=== PATIENT | female | born 2000 | race Caucasian/White ===

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

== ENCOUNTER 2022-04-13 11:40 | Inpatient (IN) | payer OTHER ==
[2022-04-13 12:49] LABS: #Eosinphils 0.1 thou/uL (0.0-0.7); #Lymphocytes 0.9 thou/uL (1.20-3.40); #Monocytes 0.3 thou/uL (0.11-0.59); #Neutrophils 6.7 thou/uL (1.40-6.50); %Basophils 0.3 % (0.0-1.0); %Eosinophils 0.7 % (0.0-10.0); %Lymphocytes 11.7 % (21.0-51.0); %Monocytes 4.2 % (0.0-10.0); %Neutrophils 83.1 % (42.0-75.0); Hemoglobin 12.2 g/dL (12.0-16.0); Mean Corpuscular HGB CONC 32.5 g/dL (32.0-36.0); Mean Corpuscular Hemoglobin 29.6 pg (27.0-31.0); Mean Platelet Volume 8.3 fL (7.4-10.4); Platelet Count 275 10x3/uL (130-400); White Blood Cell (WBC) Count 8.1 10x3/uL (4.8-10.8)
[2022-04-13 13:21] LABS: ALT (SGPT) 410 U/L (8-55); AST (SGOT) 439 U/L (5-34); Albumin 3.9 g/dL (3.5-5.0); Alkaline Phosphatase 97 U/L (40-110); Anion Gap 14 mmol/L (10-20); BUN (Urea Nitrogen) 7 mg/dL (7.0-18.7); Bilirubin, Total 1.3 mg/dL (0.2-1.2); Calc. Creatinine Clearance 0 mL/min (70-130); Calcium 9.5 mg/dL (7.8-10.44); Carbon Dioxide 22 mmol/L (22-29); Chloride 105 mmol/L (98-107); Estimated GFR 126; Globulin 3.5 g/dL (2.4-3.5); Glucose 105 mg/dL (70-105); Lipase 131 U/L (8-78); Potassium 3.8 mmol/L (3.5-5.1); Protein, Total 7.4 g/dL (6.0-8.3); Sodium 137 mmol/L (136-145)
[2022-04-13] MEDS ORDERED: Acetaminophen 500 MG TAB ONE (14:18)
[2022-04-13 15:34] LABS: Bacteria/HPF None Seen HPF (None Seen); Bilirubin Negative (Negative); Blood, Urine Negative (Negative); Glucose, Urine (Dipstick) Normal (Negative); Ketone, Urine Negative (Negative); Leukocyte 75 Leu/uL (Negative); Nitrite Negative (Negative); Protein, Urine (Dipstick) Negative (Neg-Trace); RBC/HPF 0-3 HPF (0-3); Squamous Epithelial 0-3 HPF (0-3); Urobilinogen Normal mg/dL (Less than 2); WBC/HPF 0-3 HPF (0-3)
[2022-04-13 15:36] LABS: Clarity Cloudy (Clear)
[2022-04-13] MEDS ORDERED: Ondansetron ODT 4 MG TAB PO PRN (16:52)
[2022-04-13] MEDS ORDERED: Ondansetron PF 4 MG/2 ML Vial IVP PRN (16:52)
[2022-04-13] MEDS ORDERED: Piperacillin/Tazobactam 3.375 GM in Sodium Chloride 0.9% 100 ML IVPB SCH (17:00)
[2022-04-13] MEDS ORDERED: Morphine 4 MG/ML VIAL SLOW IVP PRN (17:23)
[2022-04-13 17:43] VITALS: BMI 28.3
[2022-04-13] MEDS ORDERED: Morphine 4 MG/ML VIAL ONE (17:56)
[2022-04-13 18:04] LABS: SARS-CoV-2 NAA Rapid Test Not Detected (NotDetected)
[2022-04-13] MEDS: Morphine 4 MG/ML VIAL SLOW IVP PRN (18:07)
[2022-04-13] MEDS ORDERED: Piperacillin/Tazobactam 3.375 GM VIAL ONE (19:11)
[2022-04-13] MEDS: Lactated Ringer's 1,000 ML IV SCH (20:14)
[2022-04-13] MEDS: Piperacillin/Tazobactam 3.375 GM in Sodium Chloride 0.9% 100 ML IVPB SCH (20:15)
[2022-04-13] MEDS: Famotidine 20 MG TAB PO SCH (20:17)
[2022-04-14] MEDS: Morphine 4 MG/ML VIAL SLOW IVP PRN ×3 (04:15→20:05)
[2022-04-14] MEDS: Piperacillin/Tazobactam 3.375 GM in Sodium Chloride 0.9% 100 ML IVPB SCH ×3 (04:16→20:06)
[2022-04-14] MEDS: Lactated Ringer's 1,000 ML IV SCH ×3 (04:16→16:11)
[2022-04-14 07:34] LABS: #Eosinphils 0.2 thou/uL (0.0-0.7); #Lymphocytes 1.7 thou/uL (1.20-3.40); #Monocytes 0.3 thou/uL (0.11-0.59); %Basophils 0.5 % (0.0-1.0); %Eosinophils 2.3 % (0.0-10.0); %Lymphocytes 20.7 % (21.0-51.0); %Monocytes 3.7 % (0.0-10.0); %Neutrophils 72.9 % (42.0-75.0); Hemoglobin 10.8 g/dL (12.0-16.0); Mean Corpuscular HGB CONC 32.6 g/dL (32.0-36.0); Mean Corpuscular Hemoglobin 30.2 pg (27.0-31.0); Mean Corpuscular Volume 92.4 fl (78.0-98.0); Mean Platelet Volume 8.6 fL (7.4-10.4); Platelet Count 225 10x3/uL (130-400); Red Blood Cell (RBC) Count 3.57 mill/uL (4.20-5.40); White Blood Cell (WBC) Count 8.2 10x3/uL (4.8-10.8)
[2022-04-14 07:51] LABS: ALT (SGPT) 250 U/L (8-55); AST (SGOT) 146 U/L (5-34); Albumin 3.2 g/dL (3.5-5.0); Alkaline Phosphatase 89 U/L (40-110); Anion Gap 11 mmol/L (10-20); BUN (Urea Nitrogen) 6 mg/dL (7.0-18.7); Bilirubin, Total 0.9 mg/dL (0.2-1.2); Calc. Creatinine Clearance 146 mL/min (70-130); Calcium 8.5 mg/dL (7.8-10.44); Carbon Dioxide 22 mmol/L (22-29); Chloride 107 mmol/L (98-107); Estimated GFR 126; Glucose 85 mg/dL (70-105); Potassium 3.7 mmol/L (3.5-5.1); Protein, Total 6.2 g/dL (6.0-8.3); Sodium 136 mmol/L (136-145)
[2022-04-14] MEDS: Famotidine 20 MG TAB PO SCH ×2 (08:32→20:07)
[2022-04-15] MEDS: Lactated Ringer's 1,000 ML IV SCH ×2 (02:00→08:18)
[2022-04-15] MEDS: Piperacillin/Tazobactam 3.375 GM in Sodium Chloride 0.9% 100 ML IVPB SCH ×2 (04:13→12:34)
[2022-04-15] MEDS: Morphine 4 MG/ML VIAL SLOW IVP PRN ×2 (04:16→09:02)
[2022-04-15 06:50] LABS: #Basophils 0.1 thou/uL (0.0-0.2); #Eosinphils 0.1 thou/uL (0.0-0.7); #Lymphocytes 2.4 thou/uL (1.20-3.40); #Monocytes 0.4 thou/uL (0.11-0.59); #Neutrophils 5.6 thou/uL (1.40-6.50); %Basophils 0.8 % (0.0-1.0); %Eosinophils 1.6 % (0.0-10.0); %Lymphocytes 27.7 % (21.0-51.0); %Monocytes 4.7 % (0.0-10.0); %Neutrophils 65.2 % (42.0-75.0); Mean Corpuscular HGB CONC 34.4 g/dL (32.0-36.0); Mean Corpuscular Hemoglobin 31.3 pg (27.0-31.0); Mean Corpuscular Volume 90.9 fl (78.0-98.0); Mean Platelet Volume 8.7 fL (7.4-10.4); Platelet Count 223 10x3/uL (130-400); RBC Distribution Width 12.9 % (11.5-14.5); Red Blood Cell (RBC) Count 3.52 mill/uL (4.20-5.40); White Blood Cell (WBC) Count 8.6 10x3/uL (4.8-10.8)
[2022-04-15 07:36] LABS: ALT (SGPT) 166 U/L (8-55); AST (SGOT) 52 U/L (5-34); Albumin 3.3 g/dL (3.5-5.0); Alkaline Phosphatase 84 U/L (40-110); Anion Gap 11 mmol/L (10-20); BUN (Urea Nitrogen) 6 mg/dL (7.0-18.7); Bilirubin, Total 0.8 mg/dL (0.2-1.2); Calc. Creatinine Clearance 144 mL/min (70-130); Carbon Dioxide 24 mmol/L (22-29); Chloride 105 mmol/L (98-107); Estimated GFR 124; Globulin 2.9 g/dL (2.4-3.5); Glucose 79 mg/dL (70-105); Potassium 4.5 mmol/L (3.5-5.1); Protein, Total 6.2 g/dL (6.0-8.3); Sodium 135 mmol/L (136-145)
[2022-04-15 08:14] VITALS: BP 93/55; TEMP 97.6
[2022-04-15] MEDS: Famotidine 20 MG TAB PO SCH (08:17)
[2022-04-15] MEDS ORDERED: Bupivacaine HCl 0.5%/Epinephrine 1:200,000/PF 30 ml Vial ONE (12:01)
[2022-04-15] MEDS ORDERED: Iopamidol 30 ML ONE (12:01)
[2022-04-15] MEDS ORDERED: fentaNYL PF 100 MCG/2 ML SYRINGE ONE (12:13)
[2022-04-15] MEDS ORDERED: Acetaminophen/Codeine 30-300mg Tablet PO PRN (13:28)
[2022-04-15] MEDS ORDERED: Acetaminophen 500 MG TAB PO PRN (13:29)
[2022-04-15] MEDS ORDERED: Acetaminophen 500 MG TAB PO SCH (13:30)
[2022-04-15] MEDS ORDERED: Promethazine HCl 25 MG/ML VIAL IVPB PRN (13:33)
[2022-04-15] MEDS ORDERED: Promethazine HCl 25 MG/ML VIAL IM PRN (13:33)
[2022-04-15] MEDS ORDERED: Ondansetron HCl/PF 4 MG/2 ML Vial IVP PRN (13:33)
[2022-04-15] MEDS ORDERED: FENTANYL 50 MCG/ML 1 ML VIAL ONE (13:42)
[2022-04-16] MEDS ORDERED: Prenatal Vitamin 1 TAB PO SCH (09:00)
[2022-04-16] MEDS ORDERED: Polyethylene Glycol 3350 17 GM Packet PO SCH (09:00)
== END 2022-04-15 15:50 | disposition home or self-care (01) | DRG 817 ==
LOC: ERS 11:40 → ERHOLD 16:26 → T4-A 20:04
PROVIDERS: ADMIT Specialist; ATTEND Family Medicine
PROC: 0FT44ZZ Resection of Gallbladder, Percutaneous Endoscopic Approach (ICD-10-PCS; principal; 2022-04-15)
PROC: BF131ZZ Fluoroscopy of Gallbladder and Bile Ducts using Low Osmolar Contrast (ICD-10-PCS; 2022-04-15)
DX: O99.611 Diseases of the digestive system complicating pregnancy, first trimester (principal); K85.10 Biliary acute pancreatitis without necrosis or infection; K80.00 Calculus of gallbladder with acute cholecystitis without obstruction; Z20.822 Contact with and (suspected) exposure to COVID-19; Z3A.12 12 weeks gestation of pregnancy; Z79.899 Other long term (current) drug therapy; Z98.890 Other specified postprocedural states
CPT/HCPCS: 36415; 47532; 74181; 76705; 80053; 81003; 81015; 83690; 85025; 88304; 94760; C1889; J1610; J2270; J2405; J2543; J3010; J3490; J7120; Q9967; U0002

== ENCOUNTER 2022-06-23 15:17 | Outpatient (CLI) | payer OTHER | END 2022-06-23 15:18 | disposition home or self-care (01) | LOC: BICULT 15:17 | PROVIDERS: ATTEND Family Medicine | DX: O09.892 Supervision of other high risk pregnancies, second trimester (principal); Z3A.23 23 weeks gestation of pregnancy | CPT/HCPCS: 76805 ==